=== PATIENT | female | born 1975 | race Caucasian/White ===

== ENCOUNTER → 2019-04-05 07:50 | Outpatient (CLI) | payer OTHER, SELFPAY ==
--- NOTE | 2019-04-05 07:54 | CT_ITS ---
STUDY: CT MAXILLOFACIAL SINUSES REASON FOR EXAM: Female, 44 years old. Sinusitis RADIATION DOSAGE (If Supplied By Facility): CTDIvol = ( 33.06 ) mGy, DLP = ( 755.34 ) mGycm TECHNIQUE: The patient was scanned in a multi detector CT scanner. High resolution axial imaging was performed without the administration of intravenous contrast material. Sagittal and coronal images were reconstructed. Individualized dose optimization techniques were used for this CT. COMPARISON: None. FINDINGS: FRONTAL SINUSES: Right frontal sinus is hypoplastic. ETHMOIDAL SINUSES: Normal aeration, without mucosal inflammatory disease. Very small osteoma of the anterior left ethmoid air cells is of doubtful clinical significance. MAXILLARY SINUSES: Normal aeration, without mucosal inflammatory disease. SPHENOIDAL SINUSES: Normal aeration, without mucosal inflammatory disease. There is patency of the bilateral maxillary infundibuli with normal uncinate processes, ethmoid bullae, and hiatus semilunaris. Normal bilateral middle turbinates. Normal bilateral inferior turbinates. Normal midline nasal septum. There is patency of the bilateral nasal airways. The visualized osseous structures are normal. The visualized bilateral orbital contents are normal. CT/Sinus/Facial Bone IMPRESSION: 1. No paranasal sinus disease. Electronically Signed: Elmer Maguire MD at 12:30 EDT , Service support ,
== END ==
PROVIDERS: Family Provider Family Medicine; PCP Family Medicine; Referring Provider Otolaryngology; Visit Provider Otolaryngology
DX: J32.9 Chronic sinusitis, unspecified (principal)
CPT/HCPCS: 70486

== ENCOUNTER 2022-12-05 13:45 | Observation (INO) | payer OTHER, SELFPAY ==
--- NOTE | 2022-11-09 06:57 | EKG12_ITS ---
Test Reason : PREOP Blood Pressure : / mmHG Vent. Rate : 099 BPM Atrial Rate : 099 BPM P-R Int : 108 ms QRS Dur : 064 ms QT Int : 352 ms P-R-T Axes : 067 055 056 degrees QTc Int : 451 ms Sinus rhythm with short UT Low voltage QRS Borderline ECG Confirmed by ONEL LEMUS, STEPHAN ([id number]), editor in chief ELOY TEJEDA ([id number]) on 11/10/2022 10:07:01 AM Referred By: YUE Confirmed By:STEPHAN SYKES MD
[2022-11-09 07:22] LABS: Absolute Lymphocyte Count 2.53 X10^3/uL (0.83-4.51); Absolute Neutrophil Count 2.3 X10^3/uL (2.0-7.7); Basophil# 0.07 X10^3/uL; Basophil% 1.3 % (0-1); Eosinophil# 0.06 X10^3/uL; Eosinophils% 1.1 % (0-5); Hemoglobin 13.8 g/dL (12.0-15.0); Lymphocyte # 2.53 X10^3/ul (0.83-4.51); Lymphocyte % 47.5 % (19-41); Mean Corp Hgb Conc 32.1 g/dL (32-36); Mean Corpuscular Hgb 28.9 pg (27.0-32.0); Mean Platelet Vol. 9.2 fl (6.2-12.0); Monocyte# 0.41 X10^3/uL; Monocyte% 7.7 % (0-10); NRBC Flagged by Analyzer 0 % (0-5); Neutrophil # 2.25 X10^3/uL (2.7-7.7); Neutrophil % 42.2 % (47-70); Platelet Count 284 K/mm3 (150-450); RBC Distribution Width CV 13.1 % (11.6-14.6); RBC Distribution Width SD 43.1 fl (35.1-43.9); Red Blood Count 4.78 M/mm3 (4.2-5.4); White Blood Count 5.3 K/mm3 (4.4-11.0)
[2022-11-09 07:44] LABS: Magnesium 2.4 mg/dL (1.6-2.6)
[2022-11-09 07:48] LABS: Anion Gap 8 (5-15); BUN 14 mg/dL (7-18); BUN/Creat Ratio 18.3 RATIO (10-20); Calcium,Total 9.4 mg/dL (8.5-10.1); Chloride 108 mmol/L (98-107); Creatinine, Serum 0.76 mg/dL (0.55-1.02); EST Glomerular Filtration Rate 85 mL/min (>60); Est Glom Filt Rate - Afr Amer 103 mL/min (>60); Glucose 100 mg/dL (74-106); Potassium 4.2 mmol/L (3.5-5.1); Sodium Level 140 mmol/L (136-145)
[2022-11-09 10:12] LABS: HIV - WCH Non-Reactive (Nonreactive); Hepatitis B Surface Antibody Non-Reactive; Hepatitis C Antibody Non-Reactive (Nonreactive)
[2022-11-10 15:21] LABS: Hepatitis A AB, Total Negative (Negative)
--- NOTE | 2022-11-11 12:09 | HP.PCM_ITS ---
History and Physical MR#: [id number] Acct: [id number] Name:? TIM MCKEON Rep #: [id number] : 1975 ? ? Provider: Dr. Nimesh Car, DO Age/Sex:? 47/F ? ? [place] [facility] [place] Status: Signed Intake Vital Signs ? 10/13/2307:55 Height 5 ft 6 in Weight: 177 lb 4 oz BMI 28.5 Intake Visit Reasons:?lumbar spine Is patient in pain?: Yes Pain scale (1-10): 7 Allergies No Known Allergies Allergy (Verified 10/13/22 08:55) Medications cetirizine 10 mg capsule (Zyrtec) 10 mg PO 06/13/16 [History Confirmed 10/13/22] acetaminophen 325 mg capsule (Tylenol) 325 mg PO ONCE PRN 10/13/22 [History Confirmed 10/13/22] gabapentin 400 mg capsule 400 mg PO DAILY 10/13/22 [History Confirmed 10/13/22] ibuprofen 200 mg capsule (Motrin IB) 200 mg PO Q6H PRN 10/13/22 [History Confirmed 10/13/22] prednisone 1 mg tablet 1 mg PO DAILY 10/13/22 [History Confirmed 10/13/22] PFSH Surgical History?(Updated 10/13/22 @ 09:00 by Brittany Knight) History of section History of hysterectomy Family History?(Updated 10/13/22 @ 09:13 by Brittany Knight) Father PacemakerMother Bladder cancer Social History?(Updated 10/13/22 @ 09:13 by Brittany Knight) Smoking Status:? Never smoker alcohol intake:? current HPI lumbar spine Details: Parts of this documentation were recorded by a scribe, this documentation accurately reflects the service provided and the decisions made by me, Dr. Nimesh Car, DO 10/13/22 [id number]. TIM MCKEON is a 47 year old F here today for lower back pain that does shoot down bilaterally to her knees. States that the worst thing is the tingling pins and needle feeling she has in both of her feet that started on September 29. Denies any known injury. Denies any previous surgery on her lower back. States that trying to sit and sit increases her pain. States that laying flat is about the only thing that works to relieve her pain. States that she has been alternating ice and heat which hasn't helped much. States that she has also done deep tissue massage but that didn't really help either. States that she is taking the Gabapentin for the pain which doesn't do anything. Denies any injections in her lower back. States that she did do some HEP before the tingling in her feet which did help a little. Denies any bowel or bladder dysfunction. Pt. did also bring a disc that has a CT scan and an xray.? Mrs. Mckeon is a most pleasant lady 47 years old who presents in the company of her daughter.? Per above this started probably a little after Thanksgi.? It was insidious in onset without injury.? She has never had pain like this before.? It affects the left leg a lot more than it does the right leg.? She has some urinary retention as it is hard to start her stream.? When she is done she feels like perhaps she has not completely emptied the bladder. On examination she can stand her toes and she can stand on her heels.? She has pain down the leg with extension but also with flexion of her lumbar spine.? Her left Achilles reflex is completely absent.? The right 1 is 2+.? She has positive straight leg raising on the left.? She has peroneal weakness on the left as compared to the right.? She has dysesthesia of the S1 dermatome.? She has no long tract signs.? Clonus is absent Babinski's are downgoing. I reviewed the CT scan that demonstrates that she has a large herniation at L4- 5.? The problem with CT scans is that they will give 1 any detail that is necessary to truly evaluate the herniation and the size of it etc.? He has a significant neurological deficit.? She has urinary retention.? For these reasons I think that the idea of physical therapy should be thrown out.? It #1 we will do her know good and #2 with neurological deficits will need more information and that will require an MRI scan of the lumbar spine.? I will see her after the MRI scan and make further recommendations.
--- NOTE | 2022-12-02 11:59 | PCM.HP.BLA ---
History and Physical [facility] [facility] [address] [place] [id number] OFFICE VISIT Date of Service:? 10/13/22 MR#: [id number] Acct: [id number] Name:TIM REESE Rep #: [id number] : 1975 ? ? Provider: Dr. Nimesh Car, DO Age/Sex:? 47/F ? ? [place] [facility] [place] Status: Signed Intake Vital Signs ? 10/13/2307:55 Height 5 ft 6 in Weight: 177 lb 4 oz BMI 28.5 Intake Visit Reasons:?lumbar spine Is patient in pain?: Yes Pain scale (1-10): 7 Allergies No Known Allergies Allergy (Verified 10/13/22 08:55) Medications cetirizine 10 mg capsule (Zyrtec) 10 mg PO 06/13/16 [History Confirmed 10/13/22] acetaminophen 325 mg capsule (Tylenol) 325 mg PO ONCE PRN 10/13/22 [History Confirmed 10/13/22] gabapentin 400 mg capsule 400 mg PO DAILY 10/13/22 [History Confirmed 10/13/22] ibuprofen 200 mg capsule (Motrin IB) 200 mg PO Q6H PRN 10/13/22 [History Confirmed 10/13/22] prednisone 1 mg tablet 1 mg PO DAILY 10/13/22 [History Confirmed 10/13/22] PFSH Surgical History?(Updated 10/13/22 @ 09:00 by Brittany Knight) History of section History of hysterectomy Family History?(Updated 10/13/22 @ 09:13 by Brittany Knight) Father PacemakerMother Bladder cancer Social History?(Updated 10/13/22 @ 09:13 by Brittany Knight) Smoking Status:? Never smoker alcohol intake:? current HPI lumbar spine Details: Parts of this documentation were recorded by a scribe, this documentation accurately reflects the service provided and the decisions made by me, Dr. Nimesh Car, DO 10/13/22 [id number]. TIM MCKEON is a 47 year old F here today for lower back pain that does shoot down bilaterally to her knees. States that the worst thing is the tingling pins and needle feeling she has in both of her feet that started on September 29. Denies any known injury. Denies any previous surgery on her lower back. States that trying to sit and sit increases her pain. States that laying flat is about the only thing that works to relieve her pain. States that she has been alternating ice and heat which hasn't helped much. States that she has also done deep tissue massage but that didn't really help either. States that she is taking the Gabapentin for the pain which doesn't do anything. Denies any injections in her lower back. States that she did do some HEP before the tingling in her feet which did help a little. Denies any bowel or bladder dysfunction. Pt. did also bring a disc that has a CT scan and an xray.? Mrs. Mckeon is a most pleasant lady 47 years old who presents in the company of her daughter.? Per above this started probably a little after .? It was insidious in onset without injury.? She has never had pain like this before.? It affects the left leg a lot more than it does the right leg.? She has some urinary retention as it is hard to start her stream.? When she is done she feels like perhaps she has not completely emptied the bladder. On examination she can stand her toes and she can stand on her heels.? She has pain down the leg with extension but also with flexion of her lumbar spine.? Her left Achilles reflex is completely absent.? The right 1 is 2+.? She has positive straight leg raising on the left.? She has peroneal weakness on the left as compared to the right.? She has dysesthesia of the S1 dermatome.? She has no long tract signs.? Clonus is absent Babinski's are downgoing. I reviewed the CT scan that demonstrates that she has a large herniation at L4-5.? The problem with CT scans is that they will give 1 any detail that is necessary to truly evaluate the herniation and the size of it etc.? He has a significant neurological deficit.? She has urinary retention.? For these reasons I think that the idea of physical therapy should be thrown out.? It #1 we will do her know good and #2 with neurological deficits will need more information and that will require an MRI scan of the lumbar spine.? I will see her after the MRI scan and make further recommendations.
[2022-12-05] VITALS (10 sets, daily range): BP systolic 101–127; BP diastolic 69–96; PULSE 82–98; RESP 13–18; TEMP 36.2–36.7; O2SAT 93–100; BMI 27.8
--- NOTE | 2022-12-05 | DISC_PTH ---
PATIENT: TIM IQBAL LOC: MS3 U#:[id number] AGE/SX: 47/F ROOM: [facility] [place] RE12/05/[address]: Dr. Nimesh Car DO : 1975 BED: 1 DIS: 12/06/2022 SPEC #: [id number] RECD: 12/05/22 16:53 STATUS: ROX RERoni #: [id number] SUZANNE: 12/05/22 00:[address]: Nimesh Car DEPT: SURGICAL PATHOLOGY RECD BY: Bakari Nina ENTERED: 12/06/22 10:03 SP TYPE: DISC OTHR DR: DO Dr. Jose Brady MD Tissues: Intervertebral disc, NOS Procedures: Surgery Specimen Level III HEADER OPERATION: ERAS, laminectomy lumbar L4-5 PRE-OP DIAGNOSIS: Large herniation at L4-5 TISSUE SUBMITTED: Disc L4-5 MICROSCOPIC DIAGNOSIS Disc L4-5, laminectomy: Fragments of fibrocartilaginous tissue with reactive and degenerative changes. KATHY:esrgo 12/07/2022 MICROSCOPIC DESCRIPTION Slides are reviewed. GROSS DESCRIPTION Received in fixative is one container labeled with the patient's name and designated disc L4-5. The specimen consists of multiple pieces of denton, indurated tissue that in aggregate measure 3.0 x 2.5 x 0.5 cm. Business Management Specialist tissue is submitted in one cassette. / KATHY:sergo 12/06/2022 TC:5 CPT: 39166
[2022-12-05] MEDS: Acetaminophen 500 MG Tablet 1000 MG PO ×2 (10:24→22:18)
[2022-12-05] MEDS: Magnesium 1 GM over 15 mins IV (10:24)
[2022-12-05] MEDS: Lactated Ringers 1,000 ML 15 ML IV ×2 (10:25→12:25)
[2022-12-05] MEDS: Cefazolin 2 GM in 0.9% Normal Saline 100 ML IV (11:24)
--- NOTE | 2022-12-05 11:50 | RAD_ITS ---
STUDY: X-RAY - LUMBAR SPINE REASON FOR EXAM: Female, 47 years old. ERAS, LAMINECTOMY, L4-5 TECHNIQUE: 1 view(s) of the lumbar spine were obtained. COMPARISON: None FINDINGS: The localization instrument is seen posterior to the L4-L5 disc space level. RAD/Spine 1 View Any Level IMPRESSION: The localization instrument is seen posterior to the L4-L5 disc space level. Electronically Signed: Santy Ny MD at 12:36 EST ,
[2022-12-05] MEDS: THROMBIN (RECOMBINANT) 20,000 UNIT VIAL 20000 UNIT TOPICAL (12:14)
[2022-12-05 12:25] LABS: Bedside Glucose 90 mg/dL (74-106)
--- NOTE | 2022-12-05 13:50 | OP.PCM_ITS ---
Report of Operation Description of Surgical Findings:: Preoperative diagnosis: Herniated disc L4-5 with severe left L5 radiculopathy. Postoperative diagnosis: The same Procedure: Lumbar laminectomy discectomy L4-5 on the left CPT code 23254 Surgeon: Dr. 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 Neuro monitoring placed their leads on the patient. The patient was then moved onto the Darrick frame and put in the prone position and great care was taken to protect her breasts her brachial plexus bilaterally her ulnar nerves of both sides and her bony prominences. The back was then prepped and draped in standard fashion. I then made a longitudinal incision about where L4-5 would be. Subcutaneous tissues were incised length of the skin incision. I then opened the lumbar fascia to the left of the spinous processes and elevated and gently off the spinous process of L4 and the top of L5. An intraoperative x-ray was taken with a marker placed that demonstrated that we were indeed at L4-5 and this was also confirmed by the radiologist. A Nneka retractor was then put in place. I then used an old burn rondure to remove the fatty and loose areolar tissue around the ligamentum flavum. I thinned down the L4 lamina on the left with double-action rongeurs. I then took a angled curette and started by releasing ligamentum flavum off the underside of the lamina of L4. The laminectomy was carried out with 45 degree Kerrison rongeurs. I removed them all the way out to the lateral recess. I then split it in the midline and began removing it that is the ligamentum flavum with 45 degree Kerrison rongeurs. I then retracted the nerve root and the dura medialward exposing the large herniated disc I got it out into rather large fragments. There is some other smaller fragments seen to I did this using pituitary rongeurs. I also evacuated some of the disc with the by and straight pituitary rongeurs. Bleeding was controlled with bipolar cautery and thrombin-soaked Gelfoam until excellent hemostasis was obtained note in the course of the case we thoroughly irrigated with copious amounts of sterile saline every 10 to 15 minutes. Once we had good hemostasis we then placed amnionic membrane directly over the dura to prevent adhesions in the future. Gelfoam was placed over the top of that. Blood loss was so little and it was in such good control that we did not feel that we needed a drain. Close lumbar fascia using [id number] suture with #1 Vicryl. This was followed by closure of subcutaneous tissues in layers with 0 Vicryl and 2-0 Vicryl in interrupted fashion. The skin was approximated using skin clips. A sterile dressing was then applied. The patient was then recovered in the OR moved to her hospital bed and taken to recovery in satisfactory condition. This interoperative summary on Luli Mckeon. This is Dr. Car dictating.
[2022-12-05] MEDS: Lactated Ringers 1,000 ML 100 ML IV (15:51)
--- NOTE | 2022-12-05 16:04 | PCM.PN.HOSP ---
Reason for Visit Reason for Visit: Diagnoses Encounter for other preprocedural examination (12/05/22) Subjective Subjective Consult requested by Dr. Car for postop medical management Patient currently feels fine presently. Denies any complaints. Objective Data Objective Data Vital Signs: Vital Signs Temp Pulse Resp BP Pulse Ox O2 Del Method O2 Flow Rate 36.3 C L 82 16 118/82 H 99 Nasal Cannula 4 12/05/22 15:41 12/05/22 15:41 12/05/22 15:41 12/05/22 15:41 12/05/22 15:41 12/05/22 15:41 12/05/22 15:41 Oxygen Flow Rate (L/min) 4 Oxygen Delivery Method Nasal Cannula Weight: 76 kg Body Mass Index (BMI) 27.8 Intake & Output: Intake and Output for Last 24 Hours 12/03/22 12/04/22 12/05/22 23:59 23:59 23:59 Intake Total 1212 / 1212 Output Total 350 / 350 Balance 862 / 862 Lab / Micro Data Result Diagrams: 11/09/22 07:09 11/09/22 07:09 Labs: Laboratory Results - last 24 hr 12/05/22 10:14: POC Glucose 90 Micro: Microbiology 11/09/22 07:09 Swab (Method) Nasal Screen MRSA/MSSA - Final Radiography Diagnostic Testing: Radiology Impression Spine X-Ray 12/05/22 11:50 IMPRESSION: The localization instrument is seen posterior to the L4-L5 disc space level. Electronically Signed: Santy Ny MD at 12:36 EST , Physical Exam Const alert and no apparent distress HEENT head/scalp atraumatic and moist oral mucous membranes Resp normal respiratory effort, no retractions, no use of accessory muscles and clear to auscultation bilaterally Cardio regular rate, regular rhythm, S1 normal heart sound and S2 normal heart sound GI normal to inspection, nondistended, normoactive bowel sounds, soft to palpation, non-tender and non-distended Extremity normal to inspection Assessment & Plan Assessment/Plan (1) Postop check: PLAN: Patient medically stable. Has no active medical issues at this time. Patient is on oxygen but her pulse ox is 98%. Feels oxygen can be weaned down. Thank you for the consult. In the absence of any active medical issues, the hospitalist service will sign off at this time. Please reconsult if new medical issues do arise or if there are clinical questions. PLAN: Plan Status post laminectomy and discectomy: Per spine surgery VTE prophylaxis per spine surgery. Charges/Coding Visit Charges Office Visits / Consults: [id number] OP Consult L3
[2022-12-05] MEDS: Cefazolin 1 GM/50 ML BAG IV (18:33)
[2022-12-05] MEDS: oxyCODONE 5 MG Tablet PO (18:33)
[2022-12-06 01:07] VITALS: BP 105/70; PULSE 72; RESP 18; TEMP 36.6; O2SAT 92
[2022-12-06] MEDS: Cefazolin 1 GM/50 ML BAG IV (03:33)
[2022-12-06 05:37] VITALS: BP 101/73; PULSE 72; RESP 18; TEMP 36.6; O2SAT 95
[2022-12-06] MEDS: Acetaminophen 500 MG Tablet 1000 MG PO ×2 (05:43→14:04)
[2022-12-06 09:23] VITALS: BP 115/79; PULSE 104; RESP 18; TEMP 37; O2SAT 98
--- NOTE | 2022-12-06 09:32 | CASEMGMT ---
JAMMIE MINER Assessment: Face to Face with pt for initial transition planning/care coordination assessment. JAMMIE MINER introduced self and role at [facility], pt voices understanding and consents to assessment. Pt is A/O x4 and answers all questions appropriately at this time. Pt sitting up in chair in no distress. Care providers, pharmacy, and demographics verified/updated. Admitting Dx: lumbar laminectomy L4-5 left PCP:[place] Specialists:[place], [place] Pharmacy: [facility] Retail Insurance: [employer] PAUL Prescription Benefit: yes LNOK: Tom Mckeon, ; Nikole Mckeon, dtr Living Arrangements: Pt lives with in a two story home with 1 step to enter with a rail. Pt reports she is I in ADL's and denies concerns at home. Transportation: Pt drives self and denies concerns with transportation. Pt and mother will transport pt until she can drive again. DME/HHC/SNF:Pt has a toilet riser, shower seat, walk in shower with grab bars and adjustable bed. Pt is able to stay on the first floor of the home if she is unable to go to upstairs to her bedroom. Pt did work with therapy today and did well on steps per report. Pt reports she did not use a walker. Pt denies hx of HHC or SNF stays. Pt states no concerns with going home at time of dc. Pt is off work for this week during her recovery. Pt states no further concerns/needs. CM to follow. Advised pt to ask CM if any further question/concerns/needs arise, voices understanding. Pt Goal: Home Plan: Home
[2022-12-06] MEDS: oxyCODONE 5 MG Tablet PO (11:14)
[2022-12-06 14:04] VITALS: BP 109/71; PULSE 101; RESP 18; TEMP 37.1; O2SAT 99
--- NOTE | 2022-12-06 14:33 | DCINST_ITS ---
Discharge Instructions Activity May shower in (days): 5 May resume sexual activity in: 4-6 weeks Weight Bearing Status: Full weight bearing Lifting Restrictions: 10# Dressing / Incision Remove Dressing in: 4 days Follow Up Care Test Results: Test results from this visit will be discussed in further detail at your follow- up appointment, if applicable. Discharge Plan Admission Admit Date/Time: 12/05/22 13:45 Primary Reason for Your Visit: back surgery Attending Provider: Nimesh Car Primary Care Provider: Jose Salvador Consulting Providers: Jacinto Valadez Discharge Orders/Prescriptions Prescriptions: No Action acetaminophen [Tylenol] 325 mg capsule 325 mg PO ONCE PRN (Reason: Pain) ibuprofen [Motrin IB] 200 mg capsule 200 mg PO Q6H PRN (Reason: Pain) Zyrtec 10 MG capsule 10 mg PO PRN PRN (Reason: ALLERGIES) Referrals / Follow Up: Jose Salvador MD [Primary Care Provider] - Disposition Disposition (needs filled in before D/C Order can be placed): Home, Self Care
--- NOTE | 2022-12-06 14:37 | PCM.DC.SUM ---
Providers Date of Admission: 12/05/22 Primary Care Physician: Dr. Jose Salvador MD Attending Physician: This is discharge summary on Luli Mckeon. This patient was admitted yesterday 05 December. She underwent lumbar laminectomy at the L4-5 level for left leg pain. Today she reports that her leg pain is completely resolved. She has been up and walking around today. Her dressing is dry. Neurologically she is intact in both lower extremities. She was given post laminectomy protocol regarding her activities. She was given directions. She already has an appointment to see me in my office 14 days from today. She will be given oxycodone with acetaminophen for pain. This the end of discharge summary on Luli Mckeon. This is Dr. Car dictating. Consultations 12/05/22 13:58 Consult: Hospitalist Routine Consulting Provider: Jacinto Valadez Reason for Consult: Medical Management EMERGENT Consult: No MD Notified: Yes Date Notified: 12/05/22 Time Notified: 15:09 Method of Notification: Text Reason For Visit: LUMBAR LAMINECTOMY L4-5 LEFT Diagnosis Discharge Diagnosis (1) Postop check: Status: Acute Code(s): Z09 - Encounter for follow-up examination after completed treatment for conditions other than malignant neoplasm Medications at Discharge Home Medications cetirizine 10 mg capsule (Zyrtec) 10 mg PO PRN PRN ALLERGIES 06/13/16 acetaminophen 325 mg capsule (Tylenol) 325 mg PO ONCE PRN Pain 10/13/22 ibuprofen 200 mg capsule (Motrin IB) 200 mg PO Q6H PRN Pain 10/13/22 Weight / BMI Weight Weight: 167 lb 8.821 oz Body Mass Index (BMI) 27.8 ABG / Lab / Microbiology Data Result Diagrams: 11/09/22 07:09 11/09/22 07:09 Microbiology: Microbiology 11/09/22 07:09 Swab (Method) Nasal Screen MRSA/MSSA - Final D/C Instructions May shower in (days): 5 May resume sexual activity in: 4-6 weeks Weight Bearing Status: Full weight bearing Meaningful Use Info Meaningful Use Diagnoses (Choose all that apply): None applicable Discharge Plan Admission Admit Date/Time: 12/05/22 13:45 Primary Reason for Your Visit: back surgery Attending Provider: Nimesh Car Primary Care Provider: Jose Salvador Consulting Providers: Jacinto Valadez Discharge Orders/Prescriptions Prescriptions: No Action acetaminophen [Tylenol] 325 mg capsule 325 mg PO ONCE PRN (Reason: Pain) ibuprofen [Motrin IB] 200 mg capsule 200 mg PO Q6H PRN (Reason: Pain) Zyrtec 10 MG capsule 10 mg PO PRN PRN (Reason: ALLERGIES) Referrals / Follow Up: Jose Salvador MD [Primary Care Provider] - Disposition Disposition (needs filled in before D/C Order can be placed): Home, Self Care
== END 2022-12-06 16:15 | disposition home or self-care (01) ==
LOC: SDC 14:30 → MS3 14:30
PROVIDERS: Anesthesiology; Admitting Provider Orthopaedic Surgery; PCP Family Medicine; Referring Provider Orthopaedic Surgery; Visit Provider Orthopaedic Surgery
PROC: (CPT 63030; principal; 2022-12-05 11:20)
DX: M51.16 Intervertebral disc disorders with radiculopathy, lumbar region (principal); R33.9 Retention of urine, unspecified; Z79.899 Other long term (current) drug therapy; J45.909 Unspecified asthma, uncomplicated; Z86.79 Personal history of other diseases of the circulatory system
CPT/HCPCS: 63030; 00630; 36415; 72020; 80048; 82962; 83735; 85025; 86703; 86706; 86708; 86803; 87081; 88304; 93005; 94668; 96361; 96365; 96366; 97162; 99221; 99252; J7120; G0378; G0463; J2405; J3475